=== PATIENT | male | born 2000 ===

== ENCOUNTER 2020-10-25 20:23 | Emergency (ER) | payer SELFPAY ==
[~2020-10-25] VITALS: Ht 175.3 cm; Wt 69.5 kg
[2020-10-25 20:34] VITALS: BP 119/79
== END 2020-10-25 23:09 | disposition left against medical advice (07) ==
LOC: EMS 20:23
DX: R10.32 Left lower quadrant pain (principal); Z53.21 Procedure and treatment not carried out due to patient leaving prior to being seen by health care provider